=== PATIENT | male | born 1965 | race Caucasian/White ===

== ENCOUNTER → 2017-03-08 | Outpatient (CLI) | payer OTHER ==
[2014-08-05 04:09] VITALS: BP 148/68
--- NOTE | 2017-03-08 13:21 | Diagnostic Imaging Report ---
MILLIE MOHAN [facility] [id number] [facility] [place] [facility] [address], [place]. [id number] Report Submission Date: Mar 08, 2017 10:41:41 AM CDT Patient Study Name: ALEJANDRO RILEY Date: Mar 08, 2017 9:40:16 AM CDT Modality Type: CR Gender: M Description: CHEST : 69 Institution: [facility] Physician: MILLIE MOHAN Examination: PA and lateral chest. History: Evaluate lung moss. Comparison exam: None provided Findings: PA lateral chest demonstrate a normal cardiac and mediastinal silhouette. Vascular calcifications involving the aortic arch. No focal infiltrate. No blunting of the costophrenic margins. Flattening of the diaphragm and lateral view. Osseous structures are appropriate for age. Impression: Emphysematous/COPD changes. No acute pulmonary process. Electronically signed on Mar 08, 2017 10:41:41 AM CDT by: Osito MERLOS
[2017-03-08 21:10] LABS: BASO % 0.4 % (0.0-1.5); EOS % 1.8 % (0.0-6.8); LYMPH ABS # 1.83 thou/uL (0.60-4.00); MCH. 35.8 pg (28.0-34.0); MCV 102.2 fL (80.0-100.0); MONOCYTE % 8.3 % (0.0-11.0); MONOCYTE ABS # 0.56 thou/uL (0.00-0.90); PLATELET COUNT 257 thou/uL (130-400)
== END ==
LOC: LAB 09:40
PROVIDERS: ATTEND Family Medicine
DX: R05 Cough (principal); R71.8 Other abnormality of red blood cells
CPT/HCPCS: 36415; 71020; 85025